=== PATIENT | male | born 1990 | race Hispanic/Latino ===

== ENCOUNTER 2017-07-23 16:53 | Emergency (ER) | payer BC ==
[2017-07-23 16:54] VITALS: BMI 23.6
== END 2017-07-23 17:28 | disposition left against medical advice (07) ==
LOC: ED 16:53
DX: Z02.89 Encounter for other administrative examinations (principal); Z00.00 Encounter for general adult medical examination without abnormal findings

== ENCOUNTER 2017-07-28 11:49 | Emergency (ER) | payer BC ==
[2017-07-28 11:50] VITALS: BMI 23.6
[2017-07-28 11:59] VITALS: BP 141/79; RESP 22; TEMP 98; O2SAT 100
[2017-07-28] MEDS ORDERED: Labetalol 5 mg/ml Inj 20ML IV STA (12:01)
--- NOTE | 2017-07-28 12:05 | ED PDOC ---
Arrival/HPI - General Chief Complaint: Medical Clearance Time Seen by Provider: 07/28/17 11:55 Historian: Patient - History of Present Illness Narrative History of Present Illness (Text): 07/28/17 12:00 26 year old male, with no significant past medical history but a social history of substance abuse, presents to the Emergency department complaining of adverse effects after IV administration of methamphetamine 1 hour prior to arrival. Patient informs feeling severe anxiety and palpitations after drug abuse. Patient admits to methamphetamine use on a daily basis but denies similar symptoms from previous. Patient informs taking GHB with no improvement to symptoms. Patient informs mild shortness of breath but denies any fevers, chills , nausea, vomiting, chest pain, abdominal pain, diarrhea, or any other complaints. Time/Duration: Prior to Arrival Symptom Onset: Gradual Symptom Course: Worsening Activities at Onset: Light Context: Home Past Medical History - Provider Review Nursing Documentation Reviewed: Yes - Infectious Disease Hx of Infectious Diseases: None - Cardiac Hx Cardiac Disorders: No - Pulmonary Hx Respiratory Disorders: No - Neurological Hx Neurological Disorder: No - HEENT Hx HEENT Disorder: No - Renal Hx Renal Disorder: No - Endocrine/Metabolic Hx Endocrine Disorders: No - Hematological/Oncological Hx Blood Disorders: Yes Hx Hepatitis C: Yes - Integumentary Hx Dermatological Disorder: Yes Other/Comment: acne - Musculoskeletal/Rheumatological Hx Musculoskeletal Disorders: No - Gastrointestinal Hx Gastrointestinal Disorders: Yes Hx Gastrointestinal Ulcer: Yes - Genitourinary/Gynecological Hx Genitourinary Disorders: No - Psychiatric Hx Psychophysiologic Disorder: No Hx Substance Use: No - Surgical History Hx Tonsillectomy: Yes Other/Comment: circumcission,adnoid removal - Anesthesia Hx Anesthesia: Yes Hx Anesthesia Reactions: No Hx Malignant Hyperthermia: No Family/Social History - Physician Review Nursing Documentation Reviewed: Yes Family/Social History: No Known Family HX Smoking Status: Never Smoked Hx Alcohol Use: No Hx Substance Use: No Allergies/Home Meds Allergies/Adverse Reactions: Allergies No Known Allergies Allergy (Verified 04/20/15 11:17) Home Medications: Home Meds Medication Instructions Recorded Confirmed Doxycycline Hyclate [Doxycycline] 100 mg PO DAILY 04/20/15 04/20/15 Esomeprazole Magnesium [Nexium] 20 mg PO DAILY 04/20/15 04/20/15 Review of Systems - Physician Review All systems were reviewed & negative as marked: Yes - Review of Systems Constitutional: Normal. absent: Fevers Eyes: Normal ENT: Normal Respiratory: SOB (mild) Cardiovascular: Palpitations. absent: Chest Pain Gastrointestinal: Normal. absent: Abdominal Pain, Diarrhea, Nausea, Vomiting Genitourinary Male: Normal Musculoskeletal: Normal Skin: Normal Neurological: Normal Endocrine: Normal Hemo/Lymphatic: Normal Psychiatric: Anxiety. absent: Suicidal Ideation Physical Exam Vital Signs Reviewed: Yes Vital Signs Temp Pulse Resp BP Pulse Ox 07/28/17 12:23 131 H 141/79 07/28/17 11:58 98.0 F 132 H 22 141/79 100 07/28/17 11:50 98.1 F 123 H 18 141/79 100 Temperature: Afebrile Blood Pressure: Normal Pulse: Tachycardic Respiratory Rate: Normal Appearance: Positive for: Non-Toxic, Other (very anxious, slightly tremorless) Pain Distress: None Mental Status: Positive for: Alert and Oriented X 3 - Systems Exam Head: Present: Atraumatic, Normocephalic Pupils: Present: PERRL Extroacular Muscles: Present: EOMI Conjunctiva: Present: Normal Mouth: Present: Moist Mucous Membranes Neck: Present: Normal Range of Motion Respiratory/Chest: Present: Clear to Auscultation, Other (Slightly hyperventilating). No: Respiratory Distress, Accessory Muscle Use Cardiovascular: Present: Normal S1, S2, Tachycardic. No: Murmurs Abdomen: Present: Normal Bowel Sounds. No: Tenderness, Distention, Peritoneal Signs Back: Present: Normal Inspection Upper Extremity: Present: Normal Inspection. No: Cyanosis, Edema Lower Extremity: Present: Normal Inspection. No: Edema Neurological: Present: GCS=15, CN II-XII Intact, Speech Normal Skin: Present: Warm, Dry, Other (multiple areas of track [place] and bruising due to IV deug abuse. No signs of infection.). No: Rashes Psychiatric: Present: Alert, Oriented x 3, Normal Insight, Anxious. No: Suicidal Ideation Medical Decision Making ED Course and Treatment: 07/28/17 12:14 Impression: 26 year old male presents to the Emergency department for palpitations and anxiety s/p substance abuse. Plan: -- EKG -- Activan -- IV fluids -- Trandate -- Reassess and disposition Progress Notes: 07/28/17 13:28 doing well; feels much better. HR 96 and patient is comfortable. Does not want detox at this time but understands he can refer to [facility] if he changes his mind. - Lab Interpretations Lab Results: 07/28/17 12:10 07/28/17 12:10 Lab Results 07/28/17 12:10: Sodium 141, Potassium 3.8, Chloride 100, Carbon Dioxide 23, Anion Gap 22 H, BUN 15, Creatinine 0.7 L, Est GFR ( Amer) > 60, Est GFR ( Non-Af Amer) > 60, Random Glucose 84, Calcium 10.7 H, Total Bilirubin 2.6 H, AST 39, ALT 38, Alkaline Phosphatase 68, Total Protein 7.6, Albumin 4.8, Globulin 2.7, Albumin/Globulin Ratio 1.8 07/28/17 12:10: WBC 9.7, RBC 5.04, Hgb 16.2, Hct 44.6, MCV 88.5, MCH 32.1, MCHC 36.3, RDW 12.3, Plt Count 238, MPV 9.8 - Medication Orders Current Medication Orders: Sodium Chloride (Sodium Chloride 0.9%) 1,000 mls @ 100 mls/hr IV .Q10H [facility] Last Admin: 07/28/17 12:19 Dose: 100 mls/hr eMAR Start Stop Document 07/28/17 12:19 SRE (Rec: 07/28/17 12:19 SRE [id number]) Intravenous Solution Start Date 07/28/17 Start Time 12:19 Discontinued Medications Labetalol HCl (Trandate) 20 mg IV STAT STA Stop: 07/28/17 12:02 Last Admin: 07/28/17 12:23 Dose: 20 mg eMAR Start Stop Document 07/28/17 12:23 SRE (Rec: 07/28/17 12:23 SRE [id number]) Intravenous Solution Start Date 07/28/17 Start Time 12:20 End Date 07/28/17 End time 12:21 Total Infusion Time 1 MAR Pulse and Blood Pressure Document 07/28/17 12:23 SRE (Rec: 07/28/17 12:23 SRE [id number]) Pulse Pulse Rate (60-90) 131 Blood Pressure Blood Pressure (100/60-150/90) 141/79 Lorazepam (Ativan) 2 mg IVP ONCE ONE PRN Reason: Protocol Stop: 07/28/17 12:03 Last Admin: 07/28/17 12:17 Dose: 2 mg IVP Administration Document 07/28/17 12:17 SRE (Rec: 07/28/17 12:22 SRE [id number]) Charges for Administration # of IVP Administrations 1 - Scribe Statement The provider has reviewed the documentation as recorded by the Scribe Juan Manuel Tapia. All medical record entries made by the Scribe were at my direction and personally dictated by me. I have reviewed the chart and agree that the record accurately reflects my personal performance of the history, physical exam, medical decision making, and the department course for this patient. I have also personally directed, reviewed, and agree with the discharge instructions and disposition. Disposition/Present on Arrival - Present on Arrival Any Indicators Present on Arrival: No History of DVT/PE: No History of Uncontrolled Diabetes: No Urinary Catheter: No History of Decub. Ulcer: No History Surgical Site Infection Following: None - Disposition Have Diagnosis and Disposition been Completed?: Yes Diagnosis: Drug overdose, Substance abuse Disposition: HOME/ ROUTINE Disposition Time: 13:30 Patient Plan: Discharge Condition: IMPROVED Additional Instructions: [facility] detox program if inpatient or outpatient detox is considered. Avoid further drug abuse. Forms: [employer] (Czech)
[2017-07-28] MEDS ORDERED: Sodium Chloride 0.9% 1,000 ML IV SCH (12:15)
[2017-07-28 12:20] LABS: HEMOGLOBIN 16.2 g/dL (14.0-18.0); MEAN CELL VOLUME 88.5 fl (80.0-105.0); MEAN CORPUSCULAR HEMOGLOBIN 32.1 pg (25.0-35.0); MEAN CORPUSCULAR HGB CONC 36.3 g/dl (31.0-37.0); MEAN PLATELET VOLUME 9.8 fl (7.0-11.0); RBC 5.04 10^6/uL (3.5-6.1); RED CELL DISTRIBUTION WIDTH 12.3 % (11.5-14.5); WHITE BLOOD COUNT 9.7 10^3/ul (4.5-11.0)
[2017-07-28 12:24] VITALS: PULSE 131
[2017-07-28 12:31] LABS: ALB/GLOB RATIO 1.8 (1.1-1.8); ALBUMIN 4.8 g/dL (3.0-4.8); ALT/SGPT 38 U/L (7-56); AST/SGOT 39 U/L (17-59); BLOOD UREA NITROGEN 15 mg/dL (7-21); CALCIUM 10.7 mg/dL (8.4-10.5); GFR AFRICAN-AMERICAN > 60; GFR NON-AFRICAN AMERICAN > 60
--- NOTE | 2017-07-28 16:33 | CARD ---
APPROVED REPORT EKG Measurement Heart [id number] <Conclusion> Sinus tachycardia Otherwise normal ECG
== END 2017-07-28 13:43 | disposition home or self-care (01) ==
LOC: ED 11:49
DX: T50.994A Poisoning by other drugs, medicaments and biological substances, undetermined, initial encounter (principal); F19.90 Other psychoactive substance use, unspecified, uncomplicated; Y92.89 Other specified places as the place of occurrence of the external cause
CPT/HCPCS: 80053; 85027; 93005; 96374; 99283; J2060; J7040

== ENCOUNTER 2017-08-17 08:56 | Emergency (ER) | payer BC ==
[2017-08-17 08:56] VITALS: BMI 23.6
[2017-08-17 10:03] VITALS: BP 137/76; PULSE 89; RESP 18; TEMP 98; O2SAT 97
--- NOTE | 2017-08-17 10:08 | ED PDOC ---
Arrival/HPI - General Chief Complaint: Substance Abuse Time Seen by Provider: 08/17/17 09:44 - History of Present Illness Narrative History of Present Illness (Text): 26 y/o M c PMHx Hep C, polysubstance abuse p/w tachycardia x 2 hours. Patient states he injected meth last night and this morning. He states he also took GHB last night. He states he was having trouble sleeping with tachycardia with mild exertion and he was worried so he came to ED. He states he had chest pain yesterday. Denies fever, chills, vomiting, dyspnea. Went to Urgent Care yesterday for hives that developed but states improved now. He denies HI/SI/ hallucinations. He states he is not here for detox and wanted to be evaluated medically for any complications from drug use. Past Medical History - Infectious Disease Hx of Infectious Diseases: None - Cardiac Hx Cardiac Disorders: No - Pulmonary Hx Respiratory Disorders: No - Neurological Hx Neurological Disorder: No - HEENT Hx HEENT Disorder: No - Renal Hx Renal Disorder: No - Endocrine/Metabolic Hx Endocrine Disorders: No - Hematological/Oncological Hx Blood Disorders: Yes Hx Hepatitis C: Yes - Integumentary Hx Dermatological Disorder: Yes Other/Comment: acne - Musculoskeletal/Rheumatological Hx Musculoskeletal Disorders: No - Gastrointestinal Hx Gastrointestinal Disorders: Yes Hx Gastrointestinal Ulcer: Yes - Genitourinary/Gynecological Hx Genitourinary Disorders: No - Psychiatric Hx Psychophysiologic Disorder: No Hx Substance Use: No - Surgical History Hx Tonsillectomy: Yes Other/Comment: circumcission,adnoid removal - Anesthesia Hx Anesthesia: Yes Hx Anesthesia Reactions: No Hx Malignant Hyperthermia: No Family/Social History Family/Social History: No Known Family HX Smoking Status: Never Smoked Hx Alcohol Use: No Hx Substance Use: No Allergies/Home Meds Allergies/Adverse Reactions: Allergies No Known Allergies Allergy (Verified 04/20/15 11:17) Review of Systems - Physician Review All systems were reviewed & negative as marked: Yes - Review of Systems Constitutional: absent: Fevers Respiratory: absent: SOB Physical Exam - Physical Exam Narrative Physical Exam (Text): Gen: NAD Head: NC Eyes: No nystagmus. PERRL ENT: MMM Neck: Supple Chest: No tenderness CV: Regular rate at bedside. Transient increases to 120. Resp: No accessory muscle use Abd: Soft, NT Extremities: No swelling Skin: No cellulitis of extremities Neuro: Alert, no focal deficit Vital Signs Temp Pulse Resp BP Pulse Ox 08/17/17 08:56 98 F 89 18 137/76 97 Medical Decision Making ED Course and Treatment: Patient in no acute distress. Known polysubstance abuse and does not want detox at this time. Patient offered labs and further evaluation to work up dehydration , MD, etc. Patient has decided to leave AMA. Disposition/Present on Arrival - Present on Arrival Any Indicators Present on Arrival: No History of DVT/PE: No History of Uncontrolled Diabetes: No Urinary Catheter: No History of Decub. Ulcer: No History Surgical Site Infection Following: None - Disposition Have Diagnosis and Disposition been Completed?: Yes Diagnosis: Polysubstance abuse Disposition: AGAINST MEDICAL ADVICE Disposition Time: 10:13 Patient Plan: Discharge Condition: UNKNOWN Referrals: Concepcion Coe MD [Primary Care Provider] - Follow up with primary Against Medical Advice - AMA Patient Left Against Medical Advice: The patient declines admission to the hospital and wishes to leave the Emergency Department. This action is against my medical advice. This decision was made with informed refusal. The patient was told that admission to the hospital is necessary. Explanation of the reasons why were discussed. The risks of leaving were explained to the patient and include, but are not limited to, worsening of known or currently unknown conditions, permanent disability and from undiagnosed or untreated conditions. The patient has the capacity to make this informed decision and understands my explanation of the current medical problem and risks of leaving. The patient voluntarily accepts these risks and signed an AMA form documenting our conversation. The patient was given the opportunity to ask questions and reconsider. The patient was encouraged to return to the Emergency Department at any time for further care.
--- NOTE | 2017-08-17 15:31 | CARD ---
APPROVED REPORT EKG Measurement Heart [id number] [place] [id number] [id number] <Conclusion> Sinus tachycardia Otherwise normal ECG
== END 2017-08-17 10:03 | disposition left against medical advice (07) ==
LOC: ED 08:56
DX: F19.10 Other psychoactive substance abuse, uncomplicated (principal)

== ENCOUNTER 2017-10-28 14:35 | Emergency (ER) | payer BC ==
[2017-10-28 14:35] VITALS: BMI 23.6
[2017-10-28 14:46] VITALS: O2SAT 99
--- NOTE | 2017-10-28 15:04 | ED PDOC ---
Arrival/HPI - General Chief Complaint: Headache Time Seen by Provider: 10/28/17 14:49 Historian: Patient, Parent - History of Present Illness Narrative History of Present Illness (Text): 10/28/17 15:01 26 year old male presents to the Emergency department complaining of pressure to his head, forearms, and chest. Patient is worried he may have a blood clot. Patient denies any fever, chills, chest pain, shortness of breath, nausea, vomiting, diarrhea, urinary symptoms, back pain, neck pain, headache, dizziness , trauma/injury, or any other complaints. Patient is here with mother who does not believe he is having legitimate medical issues. Time/Duration: 4-6 hours Symptom Onset: Gradual Symptom Course: Unchanged Quality: Pressure Context: Home Past Medical History - Provider Review Nursing Documentation Reviewed: Yes - Infectious Disease Hx of Infectious Diseases: None - Cardiac Hx Cardiac Disorders: No - Pulmonary Hx Respiratory Disorders: No - Neurological Hx Neurological Disorder: No - HEENT Hx HEENT Disorder: No - Renal Hx Renal Disorder: No - Endocrine/Metabolic Hx Endocrine Disorders: No - Hematological/Oncological Hx Blood Disorders: Yes Hx Hepatitis C: Yes - Integumentary Hx Dermatological Disorder: Yes Other/Comment: acne - Musculoskeletal/Rheumatological Hx Musculoskeletal Disorders: No - Gastrointestinal Hx Gastrointestinal Disorders: Yes Hx Gastrointestinal Ulcer: Yes - Genitourinary/Gynecological Hx Genitourinary Disorders: No - Psychiatric Hx Psychophysiologic Disorder: Yes Hx Anxiety: Yes Hx Substance Use: Yes (METH, GHB, COCAINE, HEROINE) - Surgical History Hx Tonsillectomy: Yes Other/Comment: circumcission,adnoid removal - Anesthesia Hx Anesthesia: Yes Hx Anesthesia Reactions: No Hx Malignant Hyperthermia: No Family/Social History - Physician Review Nursing Documentation Reviewed: Yes Family/Social History: Unknown Family HX Smoking Status: Former Smoker Hx Alcohol Use: Yes Frequency of alcohol use: Socially Hx Substance Use: Yes (METH, GHB, COCAINE, HEROINE) Allergies/Home Meds Allergies/Adverse Reactions: Allergies No Known Allergies Allergy (Verified 10/28/17 14:40) Home Medications: Home Meds Medication Instructions Recorded Confirmed LORazepam [Ativan] 1 mg PO BID 10/28/17 10/28/17 No Known Home Med 10/28/17 10/28/17 Review of Systems - Physician Review All systems were reviewed & negative as marked: Yes - Review of Systems Constitutional: absent: Fevers, Night Sweats Respiratory: absent: SOB Cardiovascular: absent: Chest Pain Gastrointestinal: absent: Diarrhea, Nausea, Vomiting Genitourinary Male: absent: Dysuria Musculoskeletal: absent: Back Pain, Neck Pain Neurological: absent: Headache, Dizziness Physical Exam Vital Signs Reviewed: Yes Vital Signs Temp Pulse Resp BP Pulse Ox 10/28/17 14:40 98.0 F 89 17 118/72 99 Temperature: Afebrile Blood Pressure: Normal Pulse: Regular Respiratory Rate: Normal Appearance: Positive for: Well-Appearing, Non-Toxic, Comfortable Pain Distress: None Mental Status: Positive for: Alert and Oriented X 3 - Systems Exam Head: Present: Atraumatic, Normocephalic Pupils: Present: PERRL Extroacular Muscles: Present: EOMI Conjunctiva: Present: Normal Mouth: Present: Moist Mucous Membranes Neck: Present: Normal Range of Motion Respiratory/Chest: Present: Clear to Auscultation, Good Air Exchange. No: Respiratory Distress, Accessory Muscle Use Cardiovascular: Present: Regular Rate and Rhythm, Normal S1, S2. No: Murmurs Abdomen: No: Tenderness, Distention, Peritoneal Signs Back: Present: Normal Inspection Upper Extremity: Present: Normal Inspection. No: Cyanosis, Edema Lower Extremity: Present: Normal Inspection. No: Edema Neurological: Present: GCS=15, CN II-XII Intact, Speech Normal Skin: Present: Warm, Dry, Normal Color. No: Rashes Psychiatric: Present: Alert, Oriented x 3, Normal Insight, Normal Concentration Medical Decision Making ED Course and Treatment: 10/28/17 15:04 Impression: 26 year old male presents to the Emergency department complaining of pressure to his head, forearms, and chest. Plan: -- Chest xray -- EKG -- D Dimer -- Urinalysis, urine drug screen -- Labs -- Reassess and disposition Prior Visits: Notes and results from previous visits were reviewed. Patient was last seen in the emergency department on 08/17/17, was diagnosed with Polysubstance abuse, and left against medical advice. Progress Notes: - Lab Interpretations Lab Results: 10/28/17 15:00 10/28/17 15:00 Lab Results 10/28/17 15:30: Urine Color Light yellow, Urine Appearance Clear, Urine pH 7.0, Ur Specific [place] <= 1.005, Urine Protein Negative, Urine Glucose (UA) Negative, Urine Ketones Negative, Urine Blood Negative, Urine Nitrate Negative, Urine Bilirubin Negative, Urine Urobilinogen 0.2, Ur Leukocyte Esterase Negative 10/28/17 15:30: D-Dimer, Quantitative < 200 10/28/17 15:00: Alcohol, Quantitative < 10 10/28/17 15:00: Sodium 143, Potassium 4.6, Chloride 103, Carbon Dioxide 26, Anion Gap 19, BUN 16, Creatinine 0.6 L, Est GFR ( Amer) > 60, Est GFR ( Non-Af Amer) > 60, Random Glucose 88, Calcium 9.1, Total Bilirubin 0.6, AST 29, ALT 40, Alkaline Phosphatase 87, Lactate Dehydrogenase 422, Total Creatine Kinase 106, Troponin I < 0.01, Total Protein 7.0, Albumin 4.3, Globulin 2.7, Albumin/Globulin Ratio 1.6 10/28/17 15:00: WBC 6.6 D, RBC 4.81, Hgb 15.4, Hct 42.9, MCV 89.2, MCH 32.0, MCHC 35.9, RDW 12.5, Plt Count 251, MPV 9.6, Gran % 43.7 L, Lymph % (Auto) 35.7 H, [place] % (Auto) 12.0 H, Eos % (Auto) 7.7 H, Baso % (Auto) 0.9, Gran # 2.90, Lymph # (Auto) 2.4, [place] # (Auto) 0.8 H, Eos # (Auto) 0.5, Baso # (Auto) 0.06 - RAD Interpretation Radiology Orders: 10/28/17 14:53 CHEST PORTABLE [RAD] Stat - EKG Interpretation EKG Interpretation (Text): 10/28/17 15:03 EKG: Ordered, reviewed, and independently interpreted the EKG. Rate : 80 BPM Rhythm : NSR Interpretation : No ST-segment elevations or depressions, no T-wave inversions, normal intervals. Interpreted by ED Physician: Yes Type: 12 lead EKG - Scribe Statement The provider has reviewed the documentation as recorded by the Scribe Tushar Christie All medical record entries made by the Scribe were at my direction and personally dictated by me. I have reviewed the chart and agree that the record accurately reflects my personal performance of the history, physical exam, medical decision making, and the department course for this patient. I have also personally directed, reviewed, and agree with the discharge instructions and disposition. Disposition/Present on Arrival - Present on Arrival Any Indicators Present on Arrival: No History of DVT/PE: No History of Uncontrolled Diabetes: No Urinary Catheter: No History of Decub. Ulcer: No History Surgical Site Infection Following: None - Disposition Have Diagnosis and Disposition been Completed?: Yes Diagnosis: Anxiety, Substance abuse Disposition: HOME/ ROUTINE Disposition Time: 16:00 Patient Plan: Discharge Condition: GOOD Discharge Instructions (ExitCare): Anxiety, Adult (DC), Drug Abuse and Drug Addiction (DC) Additional Instructions: Rayray- No Blood Clots, No Pneumonia, No Heart Attack. Please take better care and use the ativan if you feel anxious. Ricky- Dr. Francesco Vargas Forms: [employer] [facility] [employer] (German)
[2017-10-28 15:12] LABS: BASO # 0.06 K/mm3 (0.0-2.0); BASO % 0.9 % (0.0-3.0); EOS # 0.5 (0.0-0.7); EOS % 7.7 % (1.5-5.0); GRAN # 2.9 (1.4-6.5); GRAN % 43.7 % (50.0-68.0); HEMOGLOBIN 15.4 g/dL (14.0-18.0); LYMPH # 2.4 (1.2-3.4); LYMPH % 35.7 % (22.0-35.0); MEAN CELL VOLUME 89.2 fl (80.0-105.0); MEAN CORPUSCULAR HGB CONC 35.9 g/dl (31.0-37.0); MEAN PLATELET VOLUME 9.6 fl (7.0-11.0); MONO # 0.8 (0.1-0.6); RBC 4.81 10^6/uL (3.5-6.1); RED CELL DISTRIBUTION WIDTH 12.5 % (11.5-14.5); WHITE BLOOD COUNT 6.6 10^3/ul (4.5-11.0)
[2017-10-28 15:23] LABS: ALB/GLOB RATIO 1.6 (1.1-1.8); ALBUMIN 4.3 g/dL (3.0-4.8); ALT/SGPT 40 U/L (7-56); AST/SGOT 29 U/L (17-59); BLOOD UREA NITROGEN 16 mg/dL (7-21); CALCIUM 9.1 mg/dL (8.4-10.5); GFR AFRICAN-AMERICAN > 60; GFR NON-AFRICAN AMERICAN > 60
[2017-10-28 15:34] LABS: TROPONIN I < 0.01 ng/mL
[2017-10-28 15:44] LABS: URINE BILIRUBIN NEGATIVE (NEGATIVE); URINE BLOOD NEGATIVE (NEGATIVE); URINE GLUCOSE (UA) NEGATIVE (NEGATIVE); URINE LEUKOCYTE ESTERASE NEGATIVE Leu/uL (NEGATIVE); URINE PROTEIN NEGATIVE mg/dL (<30 mg/dL); URINE UROBILINOGEN 0.2 E.U./dL (<1 E.U./dL)
[2017-10-28 15:45] LABS: URINE APPEARANCE CLEAR (CLEAR); URINE COLOR LIGHT YELLOW (YELLOW)
--- NOTE | 2017-10-28 16:03 | RAD ---
HISTORY: Chest Pressure COMPARISON: No prior. FINDINGS: LUNGS: No active pulmonary disease. PLEURA: No significant pleural effusion identified, no pneumothorax apparent. CARDIOVASCULAR: Normal. OSSEOUS STRUCTURES: No significant abnormalities. VISUALIZED UPPER ABDOMEN: Normal. OTHER FINDINGS: None. IMPRESSION: No active disease.
[2017-10-28 16:21] VITALS: BP 135/75; PULSE 72; RESP 18; TEMP 98.6
--- NOTE | 2017-10-29 08:36 | CARD ---
APPROVED REPORT EKG Measurement Heart [id number] <Conclusion> Normal sinus rhythm Normal ECG No change
== END 2017-10-28 16:20 | disposition home or self-care (01) ==
LOC: ED 14:35
DX: F41.9 Anxiety disorder, unspecified (principal); F19.10 Other psychoactive substance abuse, uncomplicated; Z87.891 Personal history of nicotine dependence
CPT/HCPCS: 71045; 80053; 81003; 82550; 83615; 84484; 85025; 85378; 93005; 99285; G0480

== ENCOUNTER 2017-11-20 12:32 | Emergency (ER) | payer BC ==
[2017-11-20 12:32] VITALS: BMI 23.6
--- NOTE | 2017-11-20 14:02 | RAD ---
HISTORY: Sepsis Patient COMPARISON: 10/28/2017 FINDINGS: LUNGS: No active pulmonary disease. PLEURA: No significant pleural effusion identified, no pneumothorax apparent. CARDIOVASCULAR: Normal. OSSEOUS STRUCTURES: No significant abnormalities. VISUALIZED UPPER ABDOMEN: Normal. OTHER FINDINGS: None. IMPRESSION: No active disease.
--- NOTE | 2017-11-20 14:08 | ED PDOC ---
Arrival/HPI - General Chief Complaint: Abnormal Skin Integrity Time Seen by Provider: 11/20/17 13:19 - History of Present Illness Narrative History of Present Illness (Text): 11/20/17 13:59 Pt is a 26 year old male with PMH of anxiety and IVDA, presents to the Emergency department complaining of pressure to his head. Patient is worried he may have cellulitis. Patient denies any fever, chills, chest pain, shortness of breath, nausea, vomiting, diarrhea, urinary symptoms, back pain, neck pain, headache, dizziness, trauma/injury, or any other complaints. Admits to IV drug use. Pt was just given Bactrim DS script yesterday for skin and soft tissue infection and had 2 doses so far. Worries that it isn't working. Time/Duration: 24 hours Symptom Onset: Sudden, Other Symptom Course: Worsening Quality: Pressure, Unable to Describe Severity Level: 3 Activities at Onset: Rest Context: Home Past Medical History - Provider Review Nursing Documentation Reviewed: Yes - Travel History Have you recently traveled outside [place] w/in the past 3 mons?: No - Infectious Disease Hx of Infectious Diseases: None - Cardiac Hx Cardiac Disorders: No - Pulmonary Hx Respiratory Disorders: No - Neurological Hx Neurological Disorder: No - HEENT Hx HEENT Disorder: No - Renal Hx Renal Disorder: No - Endocrine/Metabolic Hx Endocrine Disorders: No - Hematological/Oncological Hx Blood Disorders: Yes Hx Hepatitis C: Yes - Integumentary Hx Dermatological Disorder: Yes Other/Comment: acne - Musculoskeletal/Rheumatological Hx Musculoskeletal Disorders: No - Gastrointestinal Hx Gastrointestinal Disorders: Yes Hx Gastrointestinal Ulcer: Yes - Genitourinary/Gynecological Hx Genitourinary Disorders: No - Psychiatric Hx Psychophysiologic Disorder: Yes Hx Anxiety: Yes Hx Substance Use: Yes (METH, GHB, COCAINE, HEROINE) - Surgical History Hx Tonsillectomy: Yes Other/Comment: circumcission,adnoid removal - Anesthesia Hx Anesthesia: Yes Hx Anesthesia Reactions: No Hx Malignant Hyperthermia: No Family/Social History Family/Social History: No Known Family HX Smoking Status: Former Smoker Hx Alcohol Use: Yes Hx Substance Use: Yes (METH, GHB, COCAINE, HEROINE) Allergies/Home Meds Allergies/Adverse Reactions: Allergies No Known Allergies Allergy (Verified 11/20/17 12:34) Home Medications: Home Meds Medication Instructions Recorded Confirmed Sulfamethoxazole/Trimethoprim 1 tab PO BID 11/20/17 11/20/17 [Bactrim DS Tab] Physical Exam Vital Signs Reviewed: Yes Vital Signs Temp Pulse Resp BP Pulse Ox 11/20/17 19:30 17 11/20/17 19:26 82 17 110/70 97 11/20/17 17:00 86 18 108/68 98 11/20/17 15:39 98.0 F 96 H 18 106/64 98 11/20/17 12:35 97.8 F 103 H 23 104/66 100 Temperature: Afebrile Blood Pressure: Normal Pulse: Regular Respiratory Rate: Normal Appearance: Positive for: Well-Appearing, Non-Toxic, Comfortable Pain Distress: Mild Mental Status: Positive for: Alert and Oriented X 3 - Systems Exam Head: Present: Atraumatic, Normocephalic Pupils: Present: PERRL Extroacular Muscles: Present: EOMI Conjunctiva: Present: Normal Mouth: Present: Moist Mucous Membranes Neck: Present: Normal Range of Motion Respiratory/Chest: Present: Clear to Auscultation, Good Air Exchange. No: Respiratory Distress, Accessory Muscle Use Cardiovascular: Present: Regular Rate and Rhythm, Normal S1, S2. No: Murmurs Abdomen: Present: Normal Bowel Sounds. No: Tenderness, Distention, Peritoneal Signs Back: Present: Normal Inspection Upper Extremity: Present: Normal Inspection, Normal ROM, NORMAL PULSES, Erythema (bilateral hands), Capillary Refill < 2s, Other (evidence of injections (track banegas) with bruising and erythema around some of the sites). No: Cyanosis, Edema Lower Extremity: Present: Normal Inspection, NORMAL PULSES, Normal ROM. No: Edema Neurological: Present: GCS=15, CN II-XII Intact, Speech Normal (slow to respond) , Motor Func Grossly Intact Skin: Present: Warm, Dry, Normal Color. No: Rashes Psychiatric: Present: Alert, Oriented x 3, Normal Insight, Normal Concentration , Depressed Mood. No: Anxious, Agitated, Suicidal Ideation, Homicidal Ideation , Hallucinations Medical Decision Making ED Course and Treatment: 11/20/17 14:01 Impression Pt is a 26 year old male with PMH of anxiety and IVDA, presents to the Emergency department complaining of pressure to his head On exam, bilateral hands and digits erythematous and there is evidence of needle injection sites healing at various stages on both arms, lungs are clear, pulses full in all extremities, good BS, S1 and S2 appreciated w/o M/R/G Pt is being treated for cellulitis with new treatment of Bactrim DS BID as per PMD Pt has anxiety and mother at bedside; son called her to say he needed to go to the hospital this morning Plan Labs UA Tox screen Assess and dispo Progress Note 11/20/17 15:34 UA positive for Leuk esterase and wbc EKG: NSR with a rate of 94 spoke with mother and pt about taking bactrim; pt needs to continue until the medication is complete along with fluid intake and rest Discussed taking Rx'd Klonopin as directed to reduce anxiety - Lab Interpretations Lab Results: 11/20/17 14:00 11/20/17 14:00 Lab Results 11/20/17 15:17: pO2 58 H, VBG pH 7.34, VBG pCO2 51.0, VBG HCO3 27.5, VBG Total CO2 29.1 H, VBG O2 Sat (Calc) 92.3 H, VBG Base Excess 0.9, VBG Potassium 3.7, Glucose 93, Lactate 1.5, FiO2 21.0, Sodium 134.0, Chloride 102.0, Venous Blood Potassium 3.7 11/20/17 14:06: Urine Color Yellow, Urine Appearance Clear, Urine pH 8.5, Ur Specific [place] 1.015, Urine Protein 30 H, Urine Glucose (UA) Negative, Urine Ketones Negative, Urine Blood Negative, Urine Nitrate Negative, Urine Bilirubin Negative, Urine Urobilinogen 2.0 H, Ur Leukocyte Esterase Small H, Urine RBC 1 - 3, Urine WBC 10 - 15, Ur Epithelial Cells 0 - 2, Amorphous Sediment Moderate, Urine Bacteria Many, Urine Other Uyeast 11/20/17 14:00: C-React Prot High Sens 0.59 L, Alcohol, Quantitative < 10 11/20/17 14:00: Sodium 139, Potassium 3.8, Chloride 101, Carbon Dioxide 26, Anion Gap 15, BUN 9, Creatinine 0.7 L, Est GFR ( Amer) > 60, Est GFR (Non -Af Amer) > 60, Random Glucose 98, Calcium 9.0, Phosphorus 2.8, Magnesium 2.0, Total Bilirubin 0.9, AST 32, ALT 40, Alkaline Phosphatase 75, Total Protein 6.4 , Albumin 4.0, Globulin 2.4, Albumin/Globulin Ratio 1.6 11/20/17 14:00: PT 12.2, INR 1.07, APTT 32.1 11/20/17 14:00: WBC 6.9, RBC 4.83, Hgb 15.2, Hct 41.2 L, MCV 85.3 D, MCH 31.5, MCHC 36.9, RDW 11.8, Plt Count 201, MPV 9.5, Gran % 71.8 H, Lymph % (Auto) 16.2 L, Winkler % (Auto) 8.8 H, Eos % (Auto) 2.8, Baso % (Auto) 0.4, Gran # 4.92, Lymph # (Auto) 1.1 L, Winkler # (Auto) 0.6, Eos # (Auto) 0.2, Baso # (Auto) 0.03, ESR 3 11/20/17 13:30: Urine Opiates Screen Negative, Urine Methadone Screen Negative, Ur Barbiturates Screen Negative, Ur Phencyclidine Scrn Negative, Ur Amphetamines Screen Positive H, U Benzodiazepines Scrn Negative, U Oth Cocaine Metabols Negative, U Cannabinoids Screen Negative - RAD Interpretation Radiology Orders: 11/20/17 13:36 CHEST PORTABLE [RAD] Stat - Medication Orders Current Medication Orders: Discontinued Medications Trimethoprim/Sulfamethoxazole (Bactrim Ds Tab) 1 tab PO STAT STA PRN Reason: Protocol Stop: 11/20/17 19:03 Last Admin: 11/20/17 19:19 Dose: 1 tab Disposition/Present on Arrival - Present on Arrival Any Indicators Present on Arrival: Yes History of DVT/PE: No History of Uncontrolled Diabetes: No Urinary Catheter: No History of Decub. Ulcer: No History Surgical Site Infection Following: None - Disposition Have Diagnosis and Disposition been Completed?: Yes Diagnosis: UTI (urinary tract infection), Anxiety, Hypochondriacal disorder, unspecified Disposition: HOME/ ROUTINE Disposition Time: 19:04 Patient Plan: Discharge Condition: STABLE Discharge Instructions (ExitCare): Urinary Tract Infections in Adults Additional Instructions: Rayray, thank you for letting us take care of you today. Your provider was ANTONIETTA Mata. You were treated for a Urinary tract Infection. The emergency medical care you received today was directed at your acute symptoms. If you were prescribed any medication, please fill it and take as directed. It may take several days for your symptoms to resolve. Return to the Emergency Department if your symptoms worsen, do not improve, or if you have any other problems. Please take 1 tablet of Bactrim every 12 hours until it is complete. Continue taking Klonopin as you were instructed. Drink plenty of fluids and rest. Follow up with your family doctor in the next week. Please contact your doctor or call one of the physicians/clinics you have been referred to that are listed on the Patient Visit Information form that is included in your discharge packet. Bring any paperwork you were given at discharge with you along with any medications you are taking to your follow up visit. Our treatment cannot replace ongoing medical care by a primary care provider (PCP) outside of the emergency department. Thank you for allowing the [facility] team to be part of your care today. If you had an X-Ray or CT scan: A Radiologist will review the ED reading if any change in treatment is needed we will contact you. If you had a blood, urine, or wound culture: It will take several days for the results, if any change in treatment is needed we will contact you. Prescriptions: Sulfamethoxazole/Trimethoprim [Bactrim DS 800 mg-160 mg] 1 tab PO BID 5 Days # 10 tab Forms: [employer] ([place]), WORK NOTE
[2017-11-20 14:14] LABS: PH,URINE 8.5 (4.7-8.0); URINE BILIRUBIN NEGATIVE (NEGATIVE); URINE BLOOD NEGATIVE (NEGATIVE); URINE GLUCOSE (UA) NEGATIVE (NEGATIVE); URINE LEUKOCYTE ESTERASE SMALL Leu/uL (NEGATIVE); URINE PROTEIN 30 mg/dL (<30 mg/dL)
[2017-11-20 14:27] LABS: URINE APPEARANCE CLEAR (CLEAR); URINE COLOR YELLOW (YELLOW)
[2017-11-20 14:29] LABS: URINE AMORPHOUS SEDIMENT MODERATE; URINE BACTERIA MANY (NEG); URINE EPITHELIAL CELLS 0 - 2 /hpf (0-5)
[2017-11-20 15:03] LABS: BARBITURATES, UR NEGATIVE (NEGATIVE); BENZODIAZEPINES, UR NEGATIVE (NEGATIVE); OPIATES, UR NEGATIVE (NEGATIVE); PHENCYCLIDINE, UR NEGATIVE (NEGATIVE)
[2017-11-20 15:24] LABS: VENOUS BLOOD GAS BASE EXCESS 0.9 mmol/L (0.0-2.0); VENOUS BLOOD GAS PO2 58 mm/Hg (30-55); VENOUS BLOOD PH 7.34 (7.32-7.43)
[2017-11-20 15:28] LABS: BASO # 0.03 K/mm3 (0.0-2.0); BASO % 0.4 % (0.0-3.0); EOS # 0.2 (0.0-0.7); EOS % 2.8 % (1.5-5.0); GRAN # 4.92 (1.4-6.5); GRAN % 71.8 % (50.0-68.0); HEMOGLOBIN 15.2 g/dL (14.0-18.0); LYMPH # 1.1 (1.2-3.4); LYMPH % 16.2 % (22.0-35.0); MEAN CELL VOLUME 85.3 fl (80.0-105.0); MEAN CORPUSCULAR HEMOGLOBIN 31.5 pg (25.0-35.0); MEAN CORPUSCULAR HGB CONC 36.9 g/dl (31.0-37.0); MEAN PLATELET VOLUME 9.5 fl (7.0-11.0); MONO # 0.6 (0.1-0.6); MONO % 8.8 % (1.0-6.0); RBC 4.83 10^6/uL (3.5-6.1); RED CELL DISTRIBUTION WIDTH 11.8 % (11.5-14.5); WHITE BLOOD COUNT 6.9 10^3/ul (4.5-11.0)
[2017-11-20 15:39] VITALS: TEMP 98
[2017-11-20 15:41] LABS: INR 1.07 (0.93-1.08); PARTIAL THROMBOPLASTIN TIME 32.1 Seconds (25.1-36.5); PROTHROMBIN TIME 12.2 SECONDS (9.4-12.5)
[2017-11-20 15:46] LABS: ALB/GLOB RATIO 1.6 (1.1-1.8); ALT/SGPT 40 U/L (7-56); AST/SGOT 32 U/L (17-59); BLOOD UREA NITROGEN 9 mg/dL (7-21); GFR AFRICAN-AMERICAN > 60; GFR NON-AFRICAN AMERICAN > 60
--- NOTE | 2017-11-20 16:12 | CARD ---
APPROVED REPORT EKG Measurement Heart [id number] <Conclusion> Normal sinus rhythm Normal ECG
[2017-11-20] MEDS ORDERED: Tmp-Smz 800 mg-160 mg DS Tab PO STA (19:02)
[2017-11-20 19:26] VITALS: BP 110/70; PULSE 82; RESP 17; O2SAT 97
== END 2017-11-20 19:30 | disposition home or self-care (01) ==
LOC: ED 12:32
DX: F41.9 Anxiety disorder, unspecified (principal); N39.0 Urinary tract infection, site not specified; F45.20 Hypochondriacal disorder, unspecified; F19.10 Other psychoactive substance abuse, uncomplicated
CPT/HCPCS: 71045; 80053; 81001; 82803; 83735; 84100; 85025; 85610; 85651; 85730; 86140; 87040; 87086; 93005; 99285; G0480

== ENCOUNTER 2017-11-23 11:04 | Emergency (ER) | payer BC ==
[2017-11-23 11:04] VITALS: BMI 23.6
[2017-11-23 11:18] VITALS: TEMP 98; O2SAT 100
[2017-11-23 11:46] LABS: URINE BILIRUBIN NEGATIVE (NEGATIVE); URINE BLOOD NEGATIVE (NEGATIVE); URINE GLUCOSE (UA) NEGATIVE (NEGATIVE); URINE LEUKOCYTE ESTERASE NEGATIVE Leu/uL (NEGATIVE); URINE PROTEIN NEGATIVE mg/dL (<30 mg/dL); URINE UROBILINOGEN 0.2 E.U./dL (<1 E.U./dL)
[2017-11-23] MEDS ORDERED: Phenol Topical 1.4% Throat Spray (180 ml) MT PRN (11:49)
--- NOTE | 2017-11-23 11:50 | ED PDOC ---
Arrival/HPI - General Historian: Patient - History of Present Illness Time/Duration: 4-6 hours Symptom Course: Unchanged Activities at Onset: Rest - General Chief Complaint: Substance Abuse Time Seen by Provider: 11/23/17 11:14 - History of Present Illness Narrative History of Present Illness (Text): Pt is a 26 yo M with PMH of anxiety and polysubstance abuse [place] [facility] due GHB ingestion. Patient states he boiled GHB with NaOH and ingested about 3- 4 cc's of it around 7 am this morning. Since then patient has complained of throat irritation causing him to continuously cough. Patient denies any dyspnea , fatigue, somnolence, nausea, vomiting, CP, abdominal pain, fever, chills, MACKEY, or dizziness. Patient also denies any suicidal or homicidal ideology. Patient admits to IVDA with methamphetamines along with marijuana use. Patient was recently found to have a UTI and has completed 5 days of Bactrim DS. Patient states that he took his dose for today and will complete the script that he already has. (Vitaly Salcido) Past Medical History - Infectious Disease Hx of Infectious Diseases: None - Cardiac Hx Cardiac Disorders: No - Pulmonary Hx Respiratory Disorders: No - Neurological Hx Neurological Disorder: No - HEENT Hx HEENT Disorder: No - Renal Hx Renal Disorder: No - Endocrine/Metabolic Hx Endocrine Disorders: No - Hematological/Oncological Hx Blood Disorders: Yes Hx Hepatitis C: Yes - Integumentary Hx Dermatological Disorder: Yes Other/Comment: acne - Musculoskeletal/Rheumatological Hx Musculoskeletal Disorders: No - Gastrointestinal Hx Gastrointestinal Disorders: Yes Hx Gastrointestinal Ulcer: Yes - Genitourinary/Gynecological Hx Genitourinary Disorders: No - Psychiatric Hx Psychophysiologic Disorder: Yes Hx Anxiety: Yes Hx Substance Use: Yes (METH, GHB, COCAINE, HEROINE) Other/Comment: Substance Abuse - Surgical History Hx Tonsillectomy: Yes Other/Comment: circumcission,adnoid removal - Anesthesia Hx Anesthesia: Yes Hx Anesthesia Reactions: No Hx Malignant Hyperthermia: No Family/Social History Family/Social History: No Known Family HX Smoking Status: Former Smoker Hx Alcohol Use: Yes Hx Substance Use: Yes (METH, GHB, COCAINE, HEROINE) Allergies/Home Meds Allergies/Adverse Reactions: Allergies No Known Allergies Allergy (Verified 11/23/17 11:15) Home Medications: Home Meds Medication Instructions Recorded Confirmed No Known Home Med 11/23/17 11/23/17 Review of Systems - Physician Review All systems were reviewed & negative as marked: Yes (12 point ROS reviewed and is negative other than what is stated in HPI.) Physical Exam Vital Signs Reviewed: Yes Temperature: Afebrile Blood Pressure: Normal Pulse: Tachycardic Respiratory Rate: Normal Appearance: Positive for: Non-Toxic Pain Distress: None Mental Status: Positive for: Alert and Oriented X 3 - Systems Exam Head: Present: Atraumatic, Normocephalic Pupils: Present: PERRL Extroacular Muscles: Present: EOMI Conjunctiva: Present: Normal Mouth: Present: Moist Mucous Membranes Neck: Present: Normal Range of Motion Respiratory/Chest: Present: Clear to Auscultation. No: Wheezes, Rales, Rhonchi Cardiovascular: Present: Regular Rate and Rhythm, Normal S1, S2. No: Murmurs, Rub, Gallop Abdomen: No: Tenderness, Distention, Rebound Upper Extremity: Present: Normal Inspection. No: Cyanosis, Edema Lower Extremity: Present: Normal Inspection. No: Edema Neurological: Present: GCS=15, CN II-XII Intact, Speech Normal Skin: Present: Warm, Dry, Normal Color. No: Rashes Psychiatric: Present: Alert, Oriented x 3, Normal Insight, Normal Concentration Vital Signs Temp Pulse Resp BP Pulse Ox 11/23/17 13:48 89 17 127/84 100 11/23/17 12:19 114 H 18 124/70 100 11/23/17 11:04 98 F 120 H 20 123/69 100 Medical Decision Making ED Course and Treatment: 11/23/17 Patient Seen With Resident: In agreement with resident note which contains more details about the patient. Patient was seen and evaluated with resident. Came up with plan and treatment together. (Francesco Vargas) 11/23/17 11:56 26 yo M presents with GHB ingestion. Plan: - CBC, CMP, serum ASA, serum acetominophen - UDS - UA - Ativan - Chlorseptic spray prn - Reassess and disposition Previous visits were reviewed. UDS notable for methamphetamines on 11/20/17. Poison Control was contacted. Spoke to Junior, who advised that patient symptoms not typical for GHB overdose and that GHB effect would be over at this time. Any residual symptoms may be anxiety related. Poison control advised obtaining UDS. 11/23/17 12:44 UDS positive for methamphetamines, otherwise labs and UA unremarkable. Patient symptoms alleviated with lozenge and ativan. 11/23/17 13:50 Bedside swallow evaluation was done with patient, who had no difficulty swallowing liquids or solids. Patient was advised to start with soft foods and increase as tolerated. Lab results were discussed with patient. Patient was counselled on the risks of illicit drug abuse and was advised cessation. (Vitaly Salcido) - Lab Interpretations Lab Results: 11/23/17 11:45 11/23/17 11:45 Lab Results 11/23/17 11:45: Sodium 139, Potassium 4.2, Chloride 98, Carbon Dioxide 24, Anion Gap 22 H, BUN 9, Creatinine 0.8, Est GFR ( Amer) > 60, Est GFR (Non -Af Amer) > 60, Random Glucose 97, Calcium 9.4, Total Bilirubin 1.3, AST 40, ALT 53, Alkaline Phosphatase 71, Total Protein 7.4, Albumin 4.6, Globulin 2.8, Albumin/Globulin Ratio 1.7 11/23/17 11:45: Salicylates < 1 L, Acetaminophen < 10.0 L 11/23/17 11:45: WBC 7.6, RBC 5.01, Hgb 15.8, Hct 42.5, MCV 84.8, MCH 31.5, MCHC 37.2 H, RDW 12.1, Plt Count 260, MPV 9.6 11/23/17 11:38: Urine Color Yellow, Urine Appearance Clear, Urine pH 8.0, Ur Specific [place] 1.015, Urine Protein Negative, Urine Glucose (UA) Negative, Urine Ketones Negative, Urine Blood Negative, Urine Nitrate Negative, Urine Bilirubin Negative, Urine Urobilinogen 0.2, Ur Leukocyte Esterase Negative 11/23/17 11:38: Urine Opiates Screen Negative, Urine Methadone Screen Negative, Ur Barbiturates Screen Negative, Ur Phencyclidine Scrn Negative, Ur Amphetamines Screen Positive H, U Benzodiazepines Scrn Negative, U Oth Cocaine Metabols Negative, U Cannabinoids Screen Negative - Medication Orders Current Medication Orders: Discontinued Medications Lorazepam (Ativan) 1 mg IVP ONCE ONE PRN Reason: Protocol Stop: 11/23/17 11:45 Last Admin: 11/23/17 11:53 Dose: 1 mg IVP Administration Document 11/23/17 11:53 SF (Rec: 11/23/17 11:54 SF [id number] Charges for Administration # of IVP Administrations 1 Disposition/Present on Arrival - Present on Arrival Any Indicators Present on Arrival: No History of DVT/PE: No History of Uncontrolled Diabetes: No Urinary Catheter: No History of Decub. Ulcer: No History Surgical Site Infection Following: None - Disposition Have Diagnosis and Disposition been Completed?: Yes Disposition Time: 13:53 Patient Plan: Discharge - Disposition Diagnosis: Polysubstance (excluding opioids) dependence, IV drug abuse, Anxiety Disposition: HOME/ ROUTINE Patient Problems: Current Active Problems Problem Status Onset Anxiety Acute IV drug abuse Acute Polysubstance (excluding opioids) dependence Acute Condition: STABLE Discharge Instructions (ExitCare): Anxiety, Adult (DC), Drug Abuse and Drug Addiction (DC) Additional Instructions: 1. Stop all illicit drug use 2. Follow up with PMD within 1 week 3. Would recommend seeking support groups for drug abuse 4. Complete antibiotics as prescribed 5. Use warm compresses on left hand 6. Return to ED if symptoms worsen TERRY CHARLES, thank you for letting us take care of you today. Your provider was Francesco Vargas DO and you were treated for ACCIDENTAL POISONING. The emergency medical care you received today was directed at your acute symptoms. If you were prescribed any medication, please fill it and take as directed. It may take several days for your symptoms to resolve. Return to the Emergency Department if your symptoms worsen, do not improve, or if you have any other problems. Please contact your doctor or call one of the physicians/clinics you have been referred to that are listed on the Patient Visit Information form that is included in your discharge packet. Bring any paperwork you were given at discharge with you along with any medications you are taking to your follow up visit. Our treatment cannot replace ongoing medical care by a primary care provider outside of the emergency department. Thank you for allowing the [facility] team to be part of your care today. Forms: [employer] ([place]vian)
[2017-11-23 12:01] LABS: URINE APPEARANCE CLEAR (CLEAR); URINE COLOR YELLOW (YELLOW)
[2017-11-23 12:07] LABS: BARBITURATES, UR NEGATIVE (NEGATIVE); BENZODIAZEPINES, UR NEGATIVE (NEGATIVE); OPIATES, UR NEGATIVE (NEGATIVE); PHENCYCLIDINE, UR NEGATIVE (NEGATIVE)
[2017-11-23 12:08] LABS: HEMOGLOBIN 15.8 g/dL (14.0-18.0); MEAN CELL VOLUME 84.8 fl (80.0-105.0); MEAN CORPUSCULAR HEMOGLOBIN 31.5 pg (25.0-35.0); MEAN CORPUSCULAR HGB CONC 37.2 g/dl (31.0-37.0); MEAN PLATELET VOLUME 9.6 fl (7.0-11.0); RBC 5.01 10^6/uL (3.5-6.1); RED CELL DISTRIBUTION WIDTH 12.1 % (11.5-14.5); WHITE BLOOD COUNT 7.6 10^3/ul (4.5-11.0)
[2017-11-23 12:09] LABS: ACETAMINOPHEN < 10.0 ug/ml (10.0-20.0); SALICYLATE < 1 mg/dL (2.0-20.0)
[2017-11-23 12:18] LABS: ALB/GLOB RATIO 1.7 (1.1-1.8); ALBUMIN 4.6 g/dL (3.0-4.8); ALT/SGPT 53 U/L (7-56); AST/SGOT 40 U/L (17-59); BLOOD UREA NITROGEN 9 mg/dL (7-21); CALCIUM 9.4 mg/dL (8.4-10.5); GFR AFRICAN-AMERICAN > 60; GFR NON-AFRICAN AMERICAN > 60
[2017-11-23 13:49] VITALS: BP 127/84; PULSE 89; RESP 17
== END 2017-11-23 13:50 | disposition home or self-care (01) ==
LOC: ED 11:04
DX: F19.20 Other psychoactive substance dependence, uncomplicated (principal); F41.9 Anxiety disorder, unspecified; Z87.891 Personal history of nicotine dependence
CPT/HCPCS: 80053; 81003; 85027; 96374; 99285; G0480; J2060

== ENCOUNTER 2017-11-26 00:27 | Emergency (ER) | payer BC ==
[2017-11-26 00:36] VITALS: BMI 22.8
[2017-11-26 00:41] VITALS: TEMP 97.9
--- NOTE | 2017-11-26 01:01 | ED PDOC ---
Arrival/HPI - General Chief Complaint: Substance Abuse Time Seen by Provider: 11/26/17 00:30 Historian: Patient - History of Present Illness Narrative History of Present Illness (Text): Patient is a 26 year old male with PMHx of anxiety and polysubstance abuse who presents to the ED for evaluation and treatment of possible lye ingestion. Patient states he injected methadone IV and may have had lye contaminants. Admits to headache. Patient denies fever, chills, chest pain, SOB, abdominal pain, nausea, vomiting, diarrhea, constipation, and urinary symptoms. Denies any suicidal or homicidal ideology. 11/26/17 01:01 Past Medical History - Provider Review Nursing Documentation Reviewed: Yes - Travel History Have you recently traveled outside [place] w/in the past 3 mons?: No - Infectious Disease Hx of Infectious Diseases: None - Cardiac Hx Cardiac Disorders: No - Pulmonary Hx Respiratory Disorders: No - Neurological Hx Neurological Disorder: No - HEENT Hx HEENT Disorder: No - Renal Hx Renal Disorder: No - Endocrine/Metabolic Hx Endocrine Disorders: No - Hematological/Oncological Hx Blood Disorders: Yes Hx Hepatitis C: Yes - Integumentary Hx Dermatological Disorder: Yes Other/Comment: acne - Musculoskeletal/Rheumatological Hx Musculoskeletal Disorders: No - Gastrointestinal Hx Gastrointestinal Disorders: Yes Hx Gastrointestinal Ulcer: Yes - Genitourinary/Gynecological Hx Genitourinary Disorders: No - Psychiatric Hx Psychophysiologic Disorder: Yes Hx Anxiety: Yes Hx Substance Use: Yes (METH, GHB, COCAINE, HEROINE) Other/Comment: Substance Abuse - Surgical History Hx Tonsillectomy: Yes Other/Comment: adenoidectomy - Anesthesia Hx Anesthesia: Yes Hx Anesthesia Reactions: No Hx Malignant Hyperthermia: No Family/Social History - Physician Review Nursing Documentation Reviewed: Yes Family/Social History: Unknown Family HX Smoking Status: Former Smoker Hx Alcohol Use: Yes Hx Substance Use: Yes (METH, GHB, COCAINE, HEROINE) Allergies/Home Meds Allergies/Adverse Reactions: Allergies No Known Allergies Allergy (Verified 11/26/17 00:49) Home Medications: Home Meds Medication Instructions Recorded Confirmed Amphetamine Salt Combination 5 mg PO DAILY 11/26/17 11/26/17 [Adderall] clonazePAM [Klonopin] 0.5 mg PO DAILY 11/26/17 11/26/17 Review of Systems - Physician Review All systems were reviewed & negative as marked: Yes - Review of Systems Constitutional: Normal Eyes: Normal ENT: Normal Respiratory: Normal Cardiovascular: Normal Gastrointestinal: Normal Genitourinary Male: Normal Musculoskeletal: Normal Skin: Normal Neurological: Headache Endocrine: Normal Hemo/Lymphatic: Normal Psychiatric: Normal Physical Exam Vital Signs Reviewed: Yes Vital Signs Temp Pulse Resp BP Pulse Ox 11/26/17 00:40 97.9 F 86 16 113/65 100 Temperature: Afebrile Blood Pressure: Normal Pulse: Regular Respiratory Rate: Normal Appearance: Positive for: Well-Appearing, Non-Toxic, Comfortable Pain Distress: None Mental Status: Positive for: Alert and Oriented X 3 - Systems Exam Head: Present: Atraumatic, Normocephalic Pupils: Present: PERRL Extroacular Muscles: Present: EOMI Conjunctiva: Present: Normal Mouth: Present: Moist Mucous Membranes Neck: Present: Normal Range of Motion Respiratory/Chest: Present: Clear to Auscultation, Good Air Exchange. No: Respiratory Distress, Accessory Muscle Use Cardiovascular: Present: Regular Rate and Rhythm, Normal S1, S2. No: Murmurs Abdomen: No: Tenderness, Distention, Peritoneal Signs Back: Present: Normal Inspection Upper Extremity: Present: Normal Inspection. No: Cyanosis, Edema Lower Extremity: Present: Normal Inspection. No: Edema Neurological: Present: GCS=15, CN II-XII Intact, Speech Normal Skin: Present: Warm, Dry, Normal Color. No: Rashes Psychiatric: Present: Alert, Oriented x 3, Normal Insight, Normal Concentration Medical Decision Making ED Course and Treatment: Patient is a 26 year old male with PMHx of anxiety and polysubstance abuse who presents to the ED for evaluation and treatment of possible lye ingestion. IVDA Possible Lye Ingestion - CMC, CMP - salicylate, acetamenophen - ETOH, UDS, UA - EKG 11/26/17 02:42 - EKG NSR HR 83 bpm, QTc 423, QRS 80ms - poison control contacted- case reviewed, recommended supportive care 11/26/17 03:27 - gait stable, AAO x 3, ok for discharge to home - Lab Interpretations Lab Results: 11/26/17 01:00 11/26/17 01:00 Lab Results 11/26/17 01:10: Urine Opiates Screen Negative, Urine Methadone Screen Negative, Ur Barbiturates Screen Negative, Ur Phencyclidine Scrn Negative, Ur Amphetamines Screen TNP, U Benzodiazepines Scrn Negative, U Oth Cocaine Metabols Negative, U Cannabinoids Screen Negative 11/26/17 01:10: Urine Color Yellow, Urine Appearance Clear, Urine pH 7.0, Ur Specific [place] <= 1.005, Urine Protein Negative, Urine Glucose (UA) Negative, Urine Ketones Negative, Urine Blood Negative, Urine Nitrate Negative, Urine Bilirubin Negative, Urine Urobilinogen 0.2, Ur Leukocyte Esterase Negative 11/26/17 01:00: Alcohol, Quantitative < 10 11/26/17 01:00: Salicylates < 1 L, Acetaminophen < 10.0 L 11/26/17 01:00: Sodium 138, Potassium 4.0, Chloride 102, Carbon Dioxide 24, Anion Gap 17, BUN 20, Creatinine 0.9, Est GFR ( Amer) > 60, Est GFR (Non- Af Amer) > 60, Random Glucose 99, Calcium 8.7, Magnesium 2.2, Total Bilirubin 0.8, AST 33, ALT 47, Alkaline Phosphatase 60, Total Protein 6.3, Albumin 3.9, Globulin 2.3, Albumin/Globulin Ratio 1.7 11/26/17 01:00: WBC 6.7, RBC 4.28, Hgb 13.2 L D, Hct 36.7 L, MCV 85.7, MCH 30.8 , MCHC 36.0, RDW 12.1, Plt Count 201, MPV 9.4, Gran % 42.7 L, Lymph % (Auto) 43.6 H, Stanley % (Auto) 7.5 H, Eos % (Auto) 5.6 H, Baso % (Auto) 0.6, Gran # 2.84 , Lymph # (Auto) 2.9, Stanley # (Auto) 0.5, Eos # (Auto) 0.4, Baso # (Auto) 0.04 - EKG Interpretation EKG Interpretation (Text): EKG NSR HR 83 bpm, QTc 423, QRS 80ms 11/26/17 02:49 Interpreted by ED Physician: Yes Type: 12 lead EKG Disposition/Present on Arrival - Present on Arrival Any Indicators Present on Arrival: No History of DVT/PE: No History of Uncontrolled Diabetes: No Urinary Catheter: No History of Decub. Ulcer: No History Surgical Site Infection Following: None - Disposition Have Diagnosis and Disposition been Completed?: Yes Diagnosis: Substance abuse Disposition: HOME/ ROUTINE Disposition Time: 03:27 Patient Plan: Discharge Condition: STABLE Discharge Instructions (ExitCare): Drug Abuse and Drug Addiction (DC) Additional Instructions: please follow up with your doctor. return to emergency room with worsening s ymptoms or concerns. [facility]errals: [facility] [Outside] - Follow up with primary Forms: [employer] (Yakut)
[2017-11-26 01:17] LABS: BASO # 0.04 K/mm3 (0.0-2.0); BASO % 0.6 % (0.0-3.0); EOS # 0.4 (0.0-0.7); EOS % 5.6 % (1.5-5.0); GRAN # 2.84 (1.4-6.5); GRAN % 42.7 % (50.0-68.0); LYMPH # 2.9 (1.2-3.4); LYMPH % 43.6 % (22.0-35.0); MEAN CELL VOLUME 85.7 fl (80.0-105.0); MEAN CORPUSCULAR HEMOGLOBIN 30.8 pg (25.0-35.0); MEAN PLATELET VOLUME 9.4 fl (7.0-11.0); MONO # 0.5 (0.1-0.6); MONO % 7.5 % (1.0-6.0); RBC 4.28 10^6/uL (3.5-6.1); RED CELL DISTRIBUTION WIDTH 12.1 % (11.5-14.5); WHITE BLOOD COUNT 6.7 10^3/ul (4.5-11.0)
[2017-11-26 01:18] LABS: HEMOGLOBIN 13.2 g/dL (14.0-18.0)
[2017-11-26 01:30] LABS: URINE BILIRUBIN NEGATIVE (NEGATIVE); URINE BLOOD NEGATIVE (NEGATIVE); URINE GLUCOSE (UA) NEGATIVE (NEGATIVE); URINE LEUKOCYTE ESTERASE NEGATIVE Leu/uL (NEGATIVE); URINE PROTEIN NEGATIVE mg/dL (<30 mg/dL); URINE UROBILINOGEN 0.2 E.U./dL (<1 E.U./dL)
[2017-11-26 01:32] LABS: URINE APPEARANCE CLEAR (CLEAR); URINE COLOR YELLOW (YELLOW)
[2017-11-26 01:35] LABS: ALB/GLOB RATIO 1.7 (1.1-1.8); ALBUMIN 3.9 g/dL (3.0-4.8); ALT/SGPT 47 U/L (7-56); AST/SGOT 33 U/L (17-59); BLOOD UREA NITROGEN 20 mg/dL (7-21); CALCIUM 8.7 mg/dL (8.4-10.5); GFR AFRICAN-AMERICAN > 60; GFR NON-AFRICAN AMERICAN > 60
[2017-11-26 02:31] LABS: BARBITURATES, UR NEGATIVE (NEGATIVE); BENZODIAZEPINES, UR NEGATIVE (NEGATIVE); OPIATES, UR NEGATIVE (NEGATIVE); PHENCYCLIDINE, UR NEGATIVE (NEGATIVE)
[2017-11-26 02:34] LABS: ACETAMINOPHEN < 10.0 ug/ml (10.0-20.0); SALICYLATE < 1 mg/dL (2.0-20.0)
[2017-11-26 03:27] VITALS: BP 116/72; PULSE 71; RESP 18; O2SAT 98
--- NOTE | 2017-11-26 11:29 | CARD ---
APPROVED REPORT EKG Measurement Heart [id number] <Conclusion> Normal sinus rhythm Normal ECG
== END 2017-11-26 03:26 | disposition home or self-care (01) ==
LOC: ED 00:27
DX: F19.10 Other psychoactive substance abuse, uncomplicated (principal)
CPT/HCPCS: 80053; 81003; 83735; 85025; 93005; 99283; G0480

== ENCOUNTER 2018-06-09 19:46 | Emergency (ER) | payer BC ==
[2018-06-09 19:47] VITALS: BMI 22.8
--- NOTE | 2018-06-09 20:15 | ED PDOC ---
Arrival/HPI - General Chief Complaint: Substance Abuse Time Seen by Provider: 06/09/18 19:50 Historian: Patient - History of Present Illness Narrative History of Present Illness (Text): 06/09/18 20:10 A 27 year old male, whose past medical history includes anxiety and polysubstance abuse, is brought into the emergency department by [place] [employer] and EMS for further evaluation. Patient reports that he was "passed o ut" on the floor of his mother's house. He reports that the police was called so he could be brought into the emergency department . Patient notes that he ingested about "3 Gatorade capsules" of GHP at around 5:30 PM today. The patient denies any fever, chills, chest pain, shortness of breath, abdominal pain, nausea, vomiting, diarrhea, urinary symptoms, back pain, neck pain, headache, dizziness, suicidal/ homicidal ideation, or any other complaints. Time/Duration: 4-6 hours Symptom Onset: Sudden Symptom Course: Unchanged Activities at Onset: Rest, Light Context: Home Past Medical History - Provider Review Nursing Documentation Reviewed: Yes - Infectious Disease Hx of Infectious Diseases: None - Cardiac Hx Cardiac Disorders: No - Pulmonary Hx Respiratory Disorders: No - Neurological Hx Neurological Disorder: No - HEENT Hx HEENT Disorder: No - Renal Hx Renal Disorder: No - Endocrine/Metabolic Hx Endocrine Disorders: No - Hematological/Oncological Hx Blood Disorders: Yes Hx Hepatitis C: Yes - Integumentary Hx Dermatological Disorder: Yes Other/Comment: acne - Musculoskeletal/Rheumatological Hx Musculoskeletal Disorders: No - Gastrointestinal Hx Gastrointestinal Disorders: Yes Hx Gastrointestinal Ulcer: Yes - Genitourinary/Gynecological Hx Genitourinary Disorders: No - Psychiatric Hx Psychophysiologic Disorder: Yes Hx Anxiety: Yes Hx Substance Use: Yes (METH, GHB, COCAINE, HEROINE) Other/Comment: Substance Abuse - Surgical History Hx Tonsillectomy: Yes Other/Comment: adenoidectomy - Anesthesia Hx Anesthesia: Yes Hx Anesthesia Reactions: No Hx Malignant Hyperthermia: No Family/Social History - Physician Review Nursing Documentation Reviewed: Yes Family/Social History: No Known Family HX Smoking Status: Former Smoker Hx Alcohol Use: Yes Hx Substance Use: Yes (METH, GHB, COCAINE, HEROINE) Allergies/Home Meds Allergies/Adverse Reactions: Allergies No Known Allergies Allergy (Verified 11/26/17 00:49) Home Medications: Home Meds Medication Instructions Recorded Confirmed Amphetamine Salt Combination 5 mg PO DAILY 11/26/17 11/26/17 [Adderall] clonazePAM [Klonopin] 0.5 mg PO DAILY 11/26/17 11/26/17 Review of Systems - Physician Review All systems were reviewed & negative as marked: Yes - Review of Systems Constitutional: absent: Fevers Respiratory: absent: SOB Cardiovascular: absent: Chest Pain Gastrointestinal: absent: Abdominal Pain, Diarrhea, Nausea, Vomiting Genitourinary Male: absent: Urinary Output Changes Musculoskeletal: absent: Back Pain, Neck Pain Neurological: absent: Headache, Dizziness Physical Exam Pain Distress: None Mental Status: Positive for: Alert and Oriented X 3 Medical Decision Making ED Course and Treatment: 06/09/18 20:20 Impression: A 27 year old male is brought into the emergency department for further evaluation of intoxication. Plan: -- Head CT -- EKG -- Urinalysis -- Labs -- Reassess and disposition Prior Visits: Notes and results from previous visits were reviewed. Progress Notes: EKG: Ordered, reviewed, and independently interpreted the EKG. Rate : 83 BPM Rhythm : NSR Interpretation : No STEMI EXAM: CT Head without Intravenous Contrast. IMPRESSION: No acute intracranial abnormality. Electronically signed on Jun 09, 2018 9:54:32 PM EST by: Fernando Gray M.D., MBA Certified By [facility]BR & CBC[employer] Fellowship Trained MRI and CT Specialist - Lab Interpretations I have reviewed the lab results: Yes - EKG Interpretation Interpreted by ED Physician: Yes Type: 12 lead EKG - Scribe Statement The provider has reviewed the documentation as recorded by the Trang Cheng Provider Scribe Attestation: All medical record entries made by the Scribe were at my direction and personally dictated by me. I have reviewed the chart and agree that the record accurately reflects my personal performance of the history, physical exam, medical decision making, and the department course for this patient. I have also personally directed, reviewed, and agree with the discharge instructions and disposition. Disposition/Present on Arrival - Present on Arrival Any Indicators Present on Arrival: No History of DVT/PE: No History of Uncontrolled Diabetes: No Urinary Catheter: No History of Decub. Ulcer: No History Surgical Site Infection Following: None - Disposition Have Diagnosis and Disposition been Completed?: Yes Diagnosis: Drug abuse Disposition: HOME/ ROUTINE Disposition Time: 22:43 Patient Problems: Current Active Problems Problem Status Onset Drug abuse Acute Condition: GOOD Discharge Instructions (ExitCare): Drug Abuse and Drug Addiction (DC) Additional Instructions: STOP DOING DRUGS. IT CAN BE DANGEROUS. GO TO THE PROGRAM AND PRIMARY CARE DOCTOR WE ARE RECCOMENDING FOR HELP TERRY CHARLES, thank you for letting us take care of you today. Your provider was Dayne Castillo and you were treated for ETOH. The emergency medical care you received today was directed at your acute symptoms. If you were prescribed any medication, please fill it and take as directed. It may take several days for your symptoms to resolve. Return to the Emergency Department if your symptoms worsen, do not improve, or if you have any other problems. Please contact your doctor or call one of the physicians/clinics you have been referred to that are listed on the Patient Visit Information form that is included in your discharge packet. Bring any paperwork you were given at discharge with you along with any medications you are taking to your follow up visit. Our treatment cannot replace ongoing medical care by a primary care provider outside of the emergency department. Thank you for allowing the [facility] team to be part of your care today. If you had an X-Ray or CT scan: A Radiologist will review the ED reading if any change in treatment is needed we will contact you. If you had a blood, urine, or wound culture: It will take several days for the results, if any change in treatment is needed we will contact you. If you had an STI test: It will take 48 hours for the results. Please call after 1 week if you have not heard back. Referrals: [facility] [place] [Outside] - Follow up with primary [facility] [Outside] - Follow up with primary [facility] [Outside] - Follow up with primary Lucretia Mancuso MD [Medical Doctor] - Follow up with primary Forms: [employer] (Hungarian)
[2018-06-09 20:26] LABS: BASO # 0.02 K/mm3 (0.0-2.0); BASO % 0.3 % (0.0-3.0); EOS # 0.2 (0.0-0.7); GRAN # 4.36 (1.4-6.5); GRAN % 55.2 % (50.0-68.0); HEMOGLOBIN 13.8 g/dL (14.0-18.0); LYMPH # 2.7 (1.2-3.4); LYMPH % 33.6 % (22.0-35.0); MEAN CELL VOLUME 86.4 fl (80.0-105.0); MEAN CORPUSCULAR HEMOGLOBIN 30.3 pg (25.0-35.0); MONO # 0.6 (0.1-0.6); MONO % 7.9 % (1.0-6.0); RBC 4.56 10^6/uL (3.5-6.1); WHITE BLOOD COUNT 7.9 10^3/uL (4.5-11.0)
[2018-06-09 20:34] LABS: ALB/GLOB RATIO 1.3 (1.1-1.8); ALBUMIN 3.8 g/dL (3.0-4.8); ALT/SGPT 41 U/L (7-56); AST/SGOT 32 U/L (17-59); BLOOD UREA NITROGEN 12 mg/dL (7-21); GFR NON-AFRICAN AMERICAN > 60
[2018-06-09 20:35] LABS: ACETAMINOPHEN < 10.0 ug/ml (10.0-20.0); SALICYLATE < 1 mg/dL (2.0-20.0)
[2018-06-09 21:32] LABS: URINE BILIRUBIN NEGATIVE (NEGATIVE); URINE BLOOD NEGATIVE (NEGATIVE); URINE GLUCOSE (UA) NEGATIVE (NEGATIVE); URINE LEUKOCYTE ESTERASE NEGATIVE Leu/uL (NEGATIVE); URINE PROTEIN NEGATIVE mg/dL (<30 mg/dL); URINE UROBILINOGEN 0.2 E.U./dL (<1 E.U./dL)
[2018-06-09 21:35] LABS: URINE APPEARANCE CLEAR (CLEAR); URINE COLOR LIGHT YELLOW (YELLOW)
[2018-06-09 21:51] LABS: BARBITURATES, UR POSITIVE (NEGATIVE); BENZODIAZEPINES, UR POSITIVE (NEGATIVE); OPIATES, UR POSITIVE (NEGATIVE); PHENCYCLIDINE, UR NEGATIVE (NEGATIVE)
[2018-06-09 22:13] VITALS: TEMP 98.7
[2018-06-10 01:06] VITALS: BP 124/78; PULSE 95; RESP 18; O2SAT 100
--- NOTE | 2018-06-10 08:59 | CT ---
Date of service: 06/09/2018 PROCEDURE: CT HEAD WITHOUT CONTRAST. HISTORY: ghb od, found down COMPARISON: None available. TECHNIQUE: Axial computed tomography images were obtained through the head/brain without intravenous contrast. Radiation dose: Total exam DLP = 1042.5 mGy-cm. This CT exam was performed using one or more of the following dose reduction techniques: Automated exposure control, adjustment of the mA and/or kV according to patient size, and/or use of iterative reconstruction technique. FINDINGS: HEMORRHAGE: No intracranial hemorrhage. BRAIN: No mass effect or edema. No atrophy or chronic microvascular ischemic changes. VENTRICLES: Unremarkable. No hydrocephalus. CALVARIUM: Unremarkable. PARANASAL SINUSES: Unremarkable as visualized. No significant inflammatory changes. MASTOID AIR CELLS: Unremarkable as visualized. No inflammatory changes. OTHER FINDINGS: None. IMPRESSION: Normal CT of the Head.
--- NOTE | 2018-06-10 09:31 | CARD ---
APPROVED REPORT Date of service: 06/09/2018 EKG Measurement Heart [id number] <Conclusion> Normal sinus rhythm Normal ECG No change
== END 2018-06-09 22:30 | disposition home or self-care (01) ==
LOC: ED 19:46
DX: F19.10 Other psychoactive substance abuse, uncomplicated (principal); B19.20 Unspecified viral hepatitis C without hepatic coma; F41.9 Anxiety disorder, unspecified; Z87.891 Personal history of nicotine dependence
CPT/HCPCS: 70450; 80053; 81003; 83735; 85025; 93005; 99283; G0480

== ENCOUNTER 2018-09-16 21:35 | Emergency (ER) | payer BC ==
[2018-09-16 21:37] VITALS: BMI 22.8
[2018-09-16 22:31] VITALS: BP 114/77; PULSE 83; RESP 19; TEMP 98.6; O2SAT 98
--- NOTE | 2018-09-16 22:39 | ED PDOC ---
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 Reports no pain, fever, chills, numbness, has no other complaints. Past Medical History - Infectious Disease Hx of Infectious Diseases: None - Cardiac Hx Cardiac Disorders: No - Pulmonary Hx Respiratory Disorders: No - Neurological Hx Neurological Disorder: No - HEENT Hx HEENT Disorder: No - Renal Hx Renal Disorder: No - Endocrine/Metabolic Hx Endocrine Disorders: No - Hematological/Oncological Hx Blood Disorders: Yes Hx Hepatitis C: Yes - Integumentary Hx Dermatological Disorder: Yes Other/Comment: acne - Musculoskeletal/Rheumatological Hx Musculoskeletal Disorders: No - Gastrointestinal Hx Gastrointestinal Disorders: Yes Hx Gastrointestinal Ulcer: Yes - Genitourinary/Gynecological Hx Genitourinary Disorders: No - Psychiatric Hx Psychophysiologic Disorder: Yes Hx Anxiety: Yes Hx Substance Use: Yes (METH, GHB, COCAINE, HEROINE) Other/Comment: Substance Abuse - Surgical History Hx Tonsillectomy: Yes Other/Comment: adenoidectomy - Anesthesia Hx Anesthesia: Yes Hx Anesthesia Reactions: No Hx Malignant Hyperthermia: No Family/Social History Family/Social History: No Known Family HX Smoking Status: Former Smoker Hx Alcohol Use: Yes Hx Substance Use: Yes (METH, GHB, COCAINE, HEROINE) Allergies/Home Meds Allergies/Adverse Reactions: Allergies No Known Allergies Allergy (Verified 11/26/17 00:49) Home Medications: Home Meds Medication Instructions Recorded Confirmed Amphetamine Salt Combination 5 mg PO DAILY 11/26/17 11/26/17 [Adderall] clonazePAM [Klonopin] 0.5 mg PO DAILY 11/26/17 11/26/17 Review of Systems - Review of Systems Constitutional: absent: Fatigue, Fevers Musculoskeletal: Joint Swelling. absent: Arthralgias, Back Pain, Neck Pain Skin: absent: Rash, Pruritis, Skin Lesions Neurological: absent: Headache, Dizziness Physical Exam Vital Signs Temp Pulse Resp BP Pulse Ox 09/16/18 22:18 98.6 F 83 19 114/77 98 Temperature: Afebrile Blood Pressure: Normal Pulse: Regular Respiratory Rate: Normal Appearance: Positive for: Well-Appearing, Non-Toxic, Comfortable Pain Distress: None Mental Status: Positive for: Alert and Oriented X 3 - Systems Exam Upper Extremity: Present: Normal ROM, NORMAL PULSES, Swelling (+mild swelling to the R hand ), Neurovascularly Intact, Capillary Refill < 2s, Other (+multiple track banegas to b/l upper extremities). No: Tenderness, Erythema, Temperature Abnormalties, Deformity Neurological: Present: GCS=15, CN II-XII Intact, Speech Normal, Motor Func Grossly Intact, Normal Sensory Function Skin: Present: Warm, Dry, Normal Color. No: Rashes Psychiatric: Present: Alert, Oriented x 3, Normal Insight, Normal Concentration Medical Decision Making ED Course and Treatment: 09/16/18 22:37 Patient given reassurance that there is no evidence of infection at this time and that there is no concern for a DVT in the right upper extremity. Patient states that he does have an appointment with a rehab center tomorrow for consultation. Patient encouraged to attend his scheduled appointment with the rehab center. Patient given instructions on what to look out for, for potential infection. Advised to follow up with referral physician in 1-2 days without fail. Advised to elevate the arm and the hand. Return to the emergency room at any time for any new or worsening symptoms. Patient states he fully agrees with and understands discharge instructions. States that he agrees with the plan and disposition. Verbalized and repeated discharge instructions and plan. I have given the patient opportunity to ask any additional questions. - PA / MEDICAL ONCOLOGIST / Resident Statement MD/DO has reviewed & agrees with the documentation as recorded. Disposition/Present on Arrival - Present on Arrival Any Indicators Present on Arrival: No History of DVT/PE: No History of Uncontrolled Diabetes: No Urinary Catheter: No History of Decub. Ulcer: No History Surgical Site Infection Following: None - Disposition Have Diagnosis and Disposition been Completed?: Yes Diagnosis: Hand swelling Disposition: HOME/ ROUTINE Disposition Time: 22:30 Patient Plan: Discharge Patient Problems: Current Active Problems Problem Status Onset Hand swelling Acute Condition: STABLE Additional Instructions: Thank you for letting us take care of you today. You were treated for R hand swelling. The emergency medical care you received today was directed at your acute symptoms. Keep hand and arm elevated. It may take several days for your symptoms to resolve. Return to the Emergency Department if your symptoms worsen, do not improve, or if you have any other problems. Please contact your doctor in 2 days for re-evaluation and follow up / or call one of the physicians/clinics you have been referred to that are listed on the Patient Visit Information form that is included in your discharge packet. Bring any paperwork you were given at discharge with you along with any medications you are taking to your follow up visit. Our treatment cannot replace ongoing medical care by a primary care provider (PCP) outside of the emergency department. Thank you for allowing the [facility] team to be part of your care today. Referrals: Ernesto Bird MD [Staff Provider] - Follow up with primary Forms: [employer] (Belgian), WORK NOTE
== END 2018-09-16 22:43 | disposition home or self-care (01) ==
LOC: ED 21:35
DX: M79.89 Other specified soft tissue disorders (principal)